=== PATIENT | male | born 1950 | race Caucasian/White ===

== ENCOUNTER 2018-07-23 21:13 | Emergency (ER) | payer BC ==
[~2018-07-23] VITALS: Ht 188 cm; Wt 104.3 kg
[2018-07-23 21:24] VITALS: Ht 188 cm; Wt 104.3 kg
[2018-07-23 22:39] LABS: CALCIUM 8.8 mg/dL (8.5-10.1); CARBON DIOXIDE 23.3 mmol/L (21-32); CREATININE SERUM 1.4 mg/dL (0.7-1.3); POTASSIUM SERUM 4.3 mmol/L (3.5-5.1)
[2018-07-23 22:44] LABS: ALBUMIN 3.8 g/dL (3.4-5.0); BILIRUBIN TOTAL 0.96 mg/dL (0.20-1.00); PHOSPHOROUS 3.2 mg/dL (2.5-4.9); TOTAL PROTEIN, SERUM 6.7 g/dL (6.4-8.2)
[2018-07-24 03:05] VITALS: BP 95/66
== END 2018-07-24 03:05 | disposition left against medical advice (07) ==
LOC: ED 21:13
PROVIDERS: Emergency Medicine
DX: I47.1 Supraventricular tachycardia (principal); I48.92 Unspecified atrial flutter
CPT/HCPCS: J3490; J7030